=== PATIENT | female | born 1965 | race Caucasian/White ===

== ENCOUNTER → 2016-03-05 | Outpatient (CLI) | payer OTHER | LOC: RAD 10:50 | PROVIDERS: ATTEND Family Medicine | DX: I20.8 Other forms of angina pectoris (principal); K21.0 Gastro-esophageal reflux disease with esophagitis | CPT/HCPCS: 71020 ==

== ENCOUNTER → 2016-03-05 | Outpatient (REF) | payer OTHER ==
[2016-03-05 11:02] LABS: BASOPHILS % (AUTO) 0 % (0-2); EOSINOPHILS # (AUTO) 0.2 10^3uL; EOSINOPHILS % (AUTO) 2 % (0-4); LYMPHOCYTES # (AUTO) 1.7 X10^3; MEAN CORPUSCULAR HEMOGLOBIN 30.3 PG (26.0-34.0); MEAN CORPUSCULAR VOLUME 89 FL (80-100); MEAN PLATELET VOLUME 9.1 FL (6.0-9.5); MONOCYTES # (AUTO) 0.7 X10^3; MONOCYTES % (AUTO) 9 % (3-11); NEUTROPHILS # (AUTO) 4.7 X10^3; NEUTROPHILS % (AUTO) 65 % (51-67); PLATELET COUNT 343 10^3uL (150-450); WHITE BLOOD COUNT 7.19 10^3uL (4.0-11.0)
[2016-03-05 11:36] LABS: ALBUMIN 4.5 g/dL (3.4-5.0); ANION GAP 14.2 MEQ/L (3-15); CALCULATED IONIZED CALCIUM 4.3 mg/dL (3.8-4.6); TOTAL PROTEIN 7.5 g/dL (6.4-8.5)
== END ==
LOC: LAB 10:39
PROVIDERS: ATTEND Family Medicine
DX: D64.89 Other specified anemias (principal); R51 Headache; K21.0 Gastro-esophageal reflux disease with esophagitis; E11.9 Type 2 diabetes mellitus without complications; I20.8 Other forms of angina pectoris
CPT/HCPCS: 80053; 80061; 82150; 83036; 83690; 84443; 85025